=== PATIENT | female | born 1970 | race Hispanic/Latino ===

== ENCOUNTER 2019-07-16 | Emergency (ER) | payer SELFPAY | END 2019-07-16 15:52 | disposition home or self-care (01) | DX: R07.89 Other chest pain (principal); R60.0 Localized edema; I16.0 Hypertensive urgency; R51 Headache; R06.02 Shortness of breath; E66.01 Morbid (severe) obesity due to excess calories; Z68.41 Body mass index [BMI] 40.0-44.9, adult ==